=== PATIENT | female | born 1995 | race Caucasian/White ===

== ENCOUNTER → 2020-03-11 | Outpatient (CLI) | payer BC ==
[~2020-03-11] MED LIST: BENADRYL50 MG PO; CEPHALEXIN500 M1 PO; CLARITIN10 MG PO; EPI-PEN1 MG/ML MR; PREDNISONE20 MG PO; PYRIDIUM200 M1 PO; SPRINTEC 35 MCG1 TAB PO
== END ==
LOC: COL.RAD 14:38
DX: S90.01XA Contusion of right ankle, initial encounter (principal)